=== PATIENT | female | born 1945 ===

== ENCOUNTER 2021-11-03 19:33 | Emergency (ER) | payer BC ==
[~2021-11-03] VITALS: Ht 167.6 cm; Wt 93.0 kg
[2021-11-03] MEDS ORDERED: KETOROLAC TROMETHAMINE 30 MG INJ IM ONE (21:00)
--- NOTE | 2021-11-03 21:03 | NUR ---
XRAY at bedside
[2021-11-03] MEDS ORDERED: KETOROLAC TROMETHAMINE 30 MG INJ ONE (21:04)
[2021-11-03 22:28] LABS: *BILIRUBIN,URIN NEGATIVE (NEGATIVE); *BLOOD, URINE 2+ (NEGATIVE); *CLARITY,URINE CLEAR (CLEAR); *COLOR,URINE YELLOW (YELLOW); *KETONES,URINE NEGATIVE (NEGATIVE); *UROBILINOGEN,URINE 0.2 E.U./dl (NORMAL); LEUKOCYTE ESTERASE ,URINE TRACE (NEGATIVE); NITRITE, URINE NEGATIVE (NEGATIVE); UGLUCOSE NEGATIVE (NEGATIVE)
--- NOTE | 2021-11-03 22:50 | NUR ---
Patient discharged to home in stable condition. Written and verbal after care instructions given. Patient verbalizes understanding of instructions. Stressed follow up or return to ER for worsening s/s.
[2021-11-03 23:19] VITALS: BP 136/81
[2021-11-03 23:23] LABS: BACTERIA,URINE FEW /HPF (NONE SEEN); RBC,URINE 20-50 /HPF (0-3); SQUAMOUS EPITHELIAL CELL,UR FEW /HPF (NONE SEEN)
== END 2021-11-03 23:19 | disposition home or self-care (01) ==
LOC: ER 19:36
DX: S93.402A Sprain of unspecified ligament of left ankle, initial encounter (principal); W10.8XXA Fall (on) (from) other stairs and steps, initial encounter; Y92.098 Other place in other non-institutional residence as the place of occurrence of the external cause; I48.91 Unspecified atrial fibrillation; Z79.01 Long term (current) use of anticoagulants; I10 Essential (primary) hypertension; Z88.5 Allergy status to narcotic agent; Z88.0 Allergy status to penicillin; M85.862 Other specified disorders of bone density and structure, left lower leg; R03.0 Elevated blood-pressure reading, without diagnosis of hypertension; M85.88 Other specified disorders of bone density and structure, other site
CPT/HCPCS: 72220; 73590; 73610; 73630; 81001; 87086; 96372; 99284; J1885; A4217; A4663

== ENCOUNTER 2022-05-16 15:43 | Emergency (ER) | payer BC ==
[~2022-05-16] VITALS: Ht 165.1 cm; Wt 85.3 kg
--- NOTE | 2022-05-16 15:43 | NUR ---
Dr Ferguson at the bedside for MSE.
[2022-05-16 17:34] VITALS: BP 132/66
== END 2022-05-16 17:34 | disposition home or self-care (01) ==
LOC: ER 15:43
DX: S09.90XA Unspecified injury of head, initial encounter (principal); S16.1XXA Strain of muscle, fascia and tendon at neck level, initial encounter; W18.39XA Other fall on same level, initial encounter; Y93.E1 Activity, personal bathing and showering; Y92.031 Bathroom in apartment as the place of occurrence of the external cause; I10 Essential (primary) hypertension; I48.91 Unspecified atrial fibrillation; Z79.01 Long term (current) use of anticoagulants; Z79.02 Long term (current) use of antithrombotics/antiplatelets; Z88.5 Allergy status to narcotic agent; Z88.0 Allergy status to penicillin
CPT/HCPCS: 70450; 72125; A4663

== ENCOUNTER 2022-06-18 14:01 | Emergency (ER) | payer BC ==
[~2022-06-18] VITALS: Ht 165.1 cm; Wt 71.7 kg
[2022-06-18] MEDS ORDERED: TRAZADONE (14:19)
[2022-06-18] MEDS ORDERED: METOPROLOL (14:19)
[2022-06-18] MEDS ORDERED: ZOFRAN (14:19)
[2022-06-18] MEDS ORDERED: CYMBALTA (14:19)
[2022-06-18] MEDS ORDERED: ISOSORBIDE (14:19)
[2022-06-18] MEDS ORDERED: AMIODARONE (14:19)
[2022-06-18] MEDS ORDERED: FUROSEMIDE (14:19)
--- NOTE | 2022-06-18 14:28 | NUR ---
PT IS IN ROOM #2A. DR MIGUEL EVALUATED THE PT.
[2022-06-18 14:32] LABS: HEMATOCRIT 43.2 % (31.2-41.9); MEAN CORPUSCULAR HEMOGLOBIN 28.4 uug (24.7-32.8); MEAN CORPUSCULAR VOLUME 86.9 fL (75.5-95.3); PLATELET COUNT (AUTO) 246 K/uL (179-408)
[2022-06-18 14:39] LABS: CREATININE 1.2 mg/dL (0.6-1.3); POTASSIUM 4.6 mmol/L (3.5-5.1)
[2022-06-18 14:45] LABS: BILIRUBIN,TOTAL 0.6 mg/dL (0.2-1.0); TOTAL PROTEIN, SERUM 6.9 g/dL (6.4-8.2)
[2022-06-18] MEDS ORDERED: IV NORMAL SALINE 250 ML IV ONE (14:51)
[2022-06-18] MEDS ORDERED: IOHEXOL 300MG/ML 100 ML INFUS..BTL ONE (14:51)
[2022-06-18] MEDS ORDERED: SWABABLE VALVE TRANSFER SET EA MC ONE (14:51)
--- NOTE | 2022-06-18 16:11 | NUR ---
Patient has been cleared for DC by ERMD. Pt discharged to home in stable condition. Written and verbal after care instructions given. Patient verbalizes understanding of instructions. Stressed to follow up or return to ER for worsening s/s. Pt was able to ambulate out of ED in steady gait. She has plans to go home with daughter, but has decided to wait outside of ER/in general wiating area for daughter.
[2022-06-18 16:16] VITALS: BP 115/63
== END 2022-06-18 16:17 | disposition home or self-care (01) ==
LOC: ER 14:01
DX: S30.0XXA Contusion of lower back and pelvis, initial encounter (principal); W01.0XXA Fall on same level from slipping, tripping and stumbling without subsequent striking against object, initial encounter; Y92.013 Bedroom of single-family (private) house as the place of occurrence of the external cause; Z85.3 Personal history of malignant neoplasm of breast; I48.91 Unspecified atrial fibrillation; Z79.01 Long term (current) use of anticoagulants; I10 Essential (primary) hypertension; Z88.5 Allergy status to narcotic agent; Z88.0 Allergy status to penicillin; I31.3 Pericardial effusion (noninflammatory)
CPT/HCPCS: 99285; 74177; 80053; 85025; 36415; Q9967; A4663